=== PATIENT | female | born 1965 | race Caucasian/White ===

== ENCOUNTER → 2017-01-02 | Outpatient (CLI) | payer OTHER | LOC: FIMAGING 13:30 | PROVIDERS: ATTEND Physician Assistant | DX: Z09 Encounter for follow-up examination after completed treatment for conditions other than malignant neoplasm (principal); Z98.1 Arthrodesis status ==

== ENCOUNTER 2017-01-17 18:54 | Emergency (ER) | payer OTHER ==
[2017-01-17 19:06] VITALS: BP 140/91; PULSE 68; RESP 16; TEMP 98.2; O2SAT 98
[2017-01-17 19:48] LABS: COLOR YELLOW; LEUKOCYTE ESTERASE,URINE 2+ (NEGATIVE); NITRITE,URINE NEGATIVE (NEGATIVE); PH,URINE 5.5 (5.0-7.5)
[2017-01-17 20:03] LABS: BACTERIA 2+ /hpf (NONE SEEN); WBC,URINE 25-50 /hpf (0-3)
[2017-01-17] MEDS ORDERED: NITROFURANTOIN 100MG PREPACK#2 BTL TAKEHOME ONE (20:23)
--- NOTE | 2017-01-17 20:25 | UCPHY ---
H & P Time Seen by Provider: 01/17/17 20:08 Patient Type: Established HPI/ROS: This patient reports UTI symptoms. She describes onset of dysuria, frequency and urgency day of evaluation. No exacerbating factors. Symptoms are similar to prior UTIs. ROS: No fevers or chills. No other constitutional symptoms. : No vaginal discharge, or back pain. GI: No vomiting. 5 point ROS is otherwise negative. Smoking Status: Never smoked Physical Exam: Physical Exam Vital signs are normal. General: No acute distress Eyes: Pupils equal and react to light. Extraocular motions are intact. Lungs: No respiratory distress. Cardiac: Brisk capillary refill is intact throughout. Abdomen: Soft with mild suprapubic tenderness. No guarding or rebound. Back: No CVA tenderness Skin: No rash or pallor. Neuro: Alert INITIAL DIFFERENTIAL DIAGNOSIS: After history and physical exam differential diagnosis was considered for cystitis, interstitial cystitis, pyelonephritis, ureteral stone. Constitutional: Initial Vital Signs Temperature (C) 36.8 C 01/17/17 18:59 Heart Rate 68 01/17/17 18:59 Respiratory Rate 16 01/17/17 18:59 Blood Pressure 140/91 H 01/17/17 18:59 O2 Sat (%) 98 01/17/17 18:59 O2 Delivery Mode Room Air Allergies/Adverse Reactions: Penicillins Allergy (Verified 12/05/14 08:34) Home Medications: Medication Instructions Recorded Zolpidem Tartrate [Ambien 5MG (RX)] 2.5 mg PO HS 06/09/15 Herbals/Supplements -Info Only 1 ea PO DAILY 06/12/15 Multivitamins [Multivitamin (*)] 1 each PO DAILY 06/12/15 [place]-3 Fatty Acids/Fish Oil [Fish 1 each PO DAILY 06/12/15 Oil 1,000 mg Capsule] Vitamin B Complex [Super B-50 1 each PO DAILY 06/12/15 Complex] Nitrofurantoin Macrobid [Macrobid] 100 mg PO BID #8 cap 01/17/17 MDM/Departure - MDM Diagnostics: Urinalysis consistent with UTI with leukocytes, bacteria Medications Given: Discontinued Medications Nitrofurantoin (Macrobid 100mg Prepack#2) 1 btl TAKEHOME EDNOW ONE PRN Reason: Protocol Stop: 01/17/17 20:24 Last Admin: 01/17/17 20:39 Dose: 1 btl ED Course/Re-evaluation: Macrobid p. o. I counseled the patient regarding cystitis - Depart Disposition: Home, Routine, Self-Care Clinical Impression: Cystitis Condition: Good Instructions: Nitrofurantoin Combination (By mouth), Urinary Tract Infection in Women (ED) Additional Instructions: Diagnosis: Bladder infection Plan: Drink plenty fluids Macrobid antibiotic Return for any significant worsening despite treatment plan. Prescriptions: Nitrofurantoin Macrobid [Macrobid] 100 mg PO BID #8 cap Referrals: NONE *PRIMARY CARE P,. [Primary Care Provider] - As per Instructions - PQRS PQRS Measurement: NA
== END 2017-01-17 20:40 | disposition home or self-care (01) ==
LOC: CED 18:54
DX: N30.90 Cystitis, unspecified without hematuria (principal)
CPT/HCPCS: 81003-PO; 81015-PO; 99214-PO; G0463-PO

== ENCOUNTER → 2017-06-26 | Outpatient (CLI) | payer BC | LOC: FIMAGING 09:35 | PROVIDERS: ATTEND Neurological Surgery | DX: Z09 Encounter for follow-up examination after completed treatment for conditions other than malignant neoplasm (principal); Z98.1 Arthrodesis status ==

== ENCOUNTER → 2018-02-12 | Outpatient (CLI) | payer BC | LOC: FIMAGING 08:49 | PROVIDERS: ATTEND Nurse Practitioner | DX: Z09 Encounter for follow-up examination after completed treatment for conditions other than malignant neoplasm (principal); Z98.1 Arthrodesis status ==